=== PATIENT | female | born 1945 | race Caucasian/White ===

== ENCOUNTER 2018-06-22 11:00 | Inpatient (IN) | payer MEDICARE, OTHER ==
--- NOTE | 2018-06-16 07:18 | PREOPHP ---
DATE OF ADMISSION: 06/22/2018 SURGEON: Dr. Amelia Tyson DATE OF SURGERY: 06/22/2018 PLANNED PROCEDURE: Open abductor repair, right hip. CHIEF COMPLAINT: Right hip pain. HISTORY OF PRESENT ILLNESS: Ms. August is a 73-year-old female who states she has persistent hip dis comfort and inability to ambulate and do the activities she wishes to do. She and her surgeon electe d to undergo surgical repair next week. She denies any other current complaints besides hip pain and back pains. No recent infections, no fevers, chills or sweats. No nausea, vomiting. No change in bowel or bladder function. No chest pain, shortness of breath or dyspnea on exertion. PAST MEDICAL HISTORY: Hypertension, hyperlipidemia, hypothyroidism, osteoarthritis, gastroesophageal reflux disease. MEDICATIONS: 1. Tramadol for pain, Crestor 20 mg daily. 2. Omeprazole 40 mg daily. 3. Myrbetriq 50 mg daily. 4. Synthroid 50 mcg daily. 5. Prozac 40 mg daily. She has stopped her Celebrex prior to surgery. 6. Occasional Soma 350 mg as needed. ALLERGIES: None. SOCIAL HISTORY: No tobacco or significant alcohol use. REVIEW OF SYSTEMS: All pertinent negative. PHYSICAL EXAMINATION: GENERAL: Patient is alert, sitting on exam table. She is 5 feet 4 inches tall. VITAL SIGNS: Weight 188 pounds, blood pressure 130/75, heart rate 81, respiratory 16, afebrile. HEENT: Normocephalic, atraumatic. Pupils are equal and react to light and accommodation bilaterally . Extraocular muscles are grossly intact. Oropharynx is clear. Mucous membranes are moist. NECK: Supple, nontender, no masses or thyromegaly appreciable. No carotid bruits. CARDIOVASCULAR: Regular rate and rhythm without murmur. CHEST: Clear to auscultation bilaterally without rales, rhonchi, or wheeze. ABDOMEN: Soft, nontender, mildly obese. No masses appreciated. Positive bowel sounds. EXTREMITIES: No cyanosis, clubbing or distal edema. Hip: Deferred. She has 2+ pulses. No focal n euro deficits. She has a mildly antalgic gait. LABORATORY DATA: Chest x-ray is negative for acute disease. EKG has been done by the platemaker. Urinalysis is within normal limits. White blood cell count 4.6, hemoglobin of 12.2, hematocrit 35.9 , platelets of 274. Sed rate is 38. INR 1.1, PTT 28. Sodium 139, potassium 4.4, chloride 100, CO2 29, glucose is 94, BUN 13, creatinine 0.7, alkaline phosphatase mildly elevated at 202. Liver enzyme s otherwise normal. ASSESSMENT: 1. Right hip pain 2. Hypertension, controlled. 3. History of hypothyroidism. 4. History of hyperlipidemia. 5. Gastroesophageal reflux disease. PLAN: Ms. August is cleared for surgery with her orthopedist pending cardiac clearance. We will con timue to see for her routine primary care needs as an outpatient. Please do not hesitate to contact me should you have questions at [phone]. DR. NYA STEPHENSON DICTATING PRE-OPERARTIVE HISTORY FOR DR. AMELIA TYSON. Dictated By: AMELIA JOSÉ/NTS Conf#: [id number] DID#: [id number]
[2018-06-19 17:42] VITALS: BMI 33.4
[2018-06-22] VITALS (24 sets, daily range): BP systolic 125–157; BP diastolic 55–81; PULSE 73–92; RESP 15–18; Ht 160 cm; Wt 85.5 kg
[~2018-06-22] VITALS: Ht 160 cm; Wt 85.5 kg
--- NOTE | 2018-06-22 06:04 | HPN ---
Date/Time of Note Date/Time of Note DATE: 06/22/18 TIME: 06:04 Interval H&P Admission Note Pt. seen H&P reviewed: No system changes AMELIA MONTE MD Jun 22, 2018 06:04
--- NOTE | 2018-06-22 06:07 | OPR ---
Date/Time of Note Date/Time of Note DATE: 06/22/18 TIME: 06:04 Operative Report Procedure Date: Jun 22, 2018 Preoperative Diagnosis Right hip abductor tendon tear with chronic trochanteric bursitis Postoperative Diagnosis 1. Right hip chronic trochanteric bursitis Operation/Procedure Performed 1. Right hip open trochanteric bursectomy Surgeon see signature line Entertainment Manager Yoel Ross DO Anesthesia Type: general Estimated Blood Loss: 10 - 50 ml's Transfusion none Specimen None Grafts/Implants See op note Complications none Pt Condition Post Procedure: stable Disposition: PACU Procedure Description [employer] GENER[employer] LABORER SURGEON: Yoel Ross DO was asked to be present at my request as a result of the significant surgical complexity associated with this p rocedure including positioning of the extremities, protection of the neurovascular structures and assistance in knot-tying and suture management. In my opinion, the assistance offered by a neurosurgical nurse practitioner is insufficient and Dr. Ross should be compensated for his time PROCEDURE IN DETAIL: Following the administration of general endotracheal anesthesia supplemented with a local anesthetic, the right forearm was then sterilely prepped and 60 cc of blood were aspirated from the forearm. The bloo d was then passed off to the outside energy sales representatives from the company for preparation of the PRP solution. The patient was then placed in the left lateral decubitus position after carefully turning her. An axillary fold was placed. Sterile prep and drape was then undertaken. A lateral incision was then made over the trochanteric prominence of the right hip. The incision was carried through the subcutaneous tissues exposing the iliotibial band. The IT band was then incised and a severe amount of bursal reactive tissue was then excised. A thorough bursectomy was completed. Once the bursectomy was completed, the adductor mechanism was visualized. There was no abnormality whatsoever in the abductor mechanism. Specifically, the gluteus medius and minimus were completely intact with solid musculature. The lateral aspect of the trochanter was then debrided to stable tissue. The previously prepared PRP solution was injected in the sub-gluteal region. The wound was then closed in layers and a Prenio for the final cover. This was watertight. Estimated blood loss was procedure was 50 cc. AMELIA MONTE MD Jun 22, 2018 06:07
[~2018-06-22 11:00] MED LIST: BUPIVACAINE 0.5% (SDV) 30 ML, morphine SULFATE (PF) 8 MG, EPINEPHrine 0.3 MG, KETOROLAC... IRR SCH; CEFAZOLIN 1 GM INJ ONE; CEFAZOLIN 2 GM/50 ML (PMX) 50 ML IVPB ONE; CELE200C PO; DESFLURANE 15 MIN ONE; DEXAMETHASONE 1 MG TAB PO ONE; FLUO40CA10 PO; GABAPENTIN 300 MG CAP PO ONE; LANS30CA PO; LEVO50TA71 PO; ROCURONIUM 50 MG INJ ONE; ROSU40TA35 PO; SOD CHLORIDE 0.9% 100 ML, TRANEXAMIC ACID 3,000 MG IRR ONE; SULF500T5 PO; TRANEXAMIC ACID 1GM/100ML(PMX) 100 ML IVPB ONE; VALS1TAB74 PO; VIT. D3; [UNRECOGNIZED DRUG - OTHER]
[2018-06-22] MEDS ORDERED: MIRA50TA PO (12:24)
[2018-06-22] MEDS ORDERED: SULF500T35 PO (12:25)
[2018-06-22] MEDS ORDERED: CARI350T29 PO (12:25)
[2018-06-22] MEDS ORDERED: OMEP40CA6 PO (12:26)
[2018-06-22] MEDS ORDERED: MIDAZOLAM 1 MG/ML 2 ML INJ ONE (12:47)
[2018-06-22] MEDS ORDERED: FENTAnyl 50 MCG/ML VIAL ONE (12:47)
[2018-06-22] MEDS ORDERED: PROPOFOL 20 ML ONE (12:47)
--- NOTE | 2018-06-22 12:53 | PREAC ---
Date/Time of Note Date/Time of Note DATE: 06/22/18 TIME: 12:51 Anesthesia Eval and Record Evaluation Time Pre-Procedure Interview DATE: 06/22/18 TIME: 12:51 Age 73 Sex female NPO: 8 hrs Preoperative diagnosis Right Hip Abductor Tendonitis Planned procedure Right Open Abductor Tendon Repair Past Medical History Past Medical History: Includes Cardio: HTN, Dyslipidemia Endo: Hypothyroid Musculoskeletal: Osteoarthritis Psych: Depression Surgery & Anesthesia Issues No known issue Meds Anticoagulation: No Beta Mallory within 24 hr: No Reason Beta Mallory not given: Pt. not on B-Mallory Reported Medications Omeprazole* (Omeprazole*) 40 Mg Capsule.dr, 40 MG PO DAILY, #30 CAP 06/22/18 Carisoprodol* (Carisoprodol*) 350 Mg Tablet, 350 MG PO QHS PRN for MUSCLE SPASMS, TAB 06/22/18 Sulfasalazine EC* (Sulfazine EC*) 500 Mg Tablet.dr, 1000 MG PO BID, TAB 06/22/18 Mirabegron (Myrbetriq) 50 Mg Tab.er.24h, 50 MG PO DAILY, TAB 06/22/18 Rosuvastatin Calcium* (Crestor*) 40 Mg Tablet, 40 MG PO QHS, #30 TAB 06/19/18 Valsartan-Hydrochlorothiazide (Valsartan-HCTZ) 80-12.5 Mg Tablet, 1 TAB PO DAILY, #30 TAB 06/19/18 Levothyroxine Sodium* (Levoxyl*) 50 Mcg Tablet, 50 MCG PO BEFORE BREAKFAST, #30 TAB 06/19/18 Fluoxetine Hcl* (Prozac*) 40 Mg Capsule, 40 MG PO DAILY, CAP 06/19/18 Discontinued Reported Medications Sulfasalazine* (Sulfazine*) 500 Mg Tablet, 500 MG PO BID, TAB 06/19/18 [Vit. D3] No Conflict Check 06/19/18 [Mybetique] No Conflict Check 06/19/18 Lansoprazole* (Lansoprazole*) 30 Mg Capsule.dr, 30 MG PO DAILY, CAP 06/19/18 Celecoxib* (Celebrex*) 200 Mg Capsule, 200 MG PO DAILY, CAP 06/19/18 Current Medications Bupivacaine HCl/ Morphine Sulfate/ Epinephrine/ Ketorolac Tromethamine/ Clonidine/Sodium Chloride/ Vancomycin HCl INTRA-OP IRR ; Start 06/22/18 at 07:30 Meds reviewed: Yes Allergies Coded Allergies: adhesive tape (Verified Allergy, Severe, RASH, REDNESS, PAIN, 06/19/18) Latex, Natural Rubber (Verified Allergy, Unknown, 06/22/18) Uncoded Allergies: STERI STRIP (Allergy, Unknown, 06/22/18) Allergies Reviewed: Yes Labs/Studies Labs Reviewed: Reviewed by anesthesiologist test: N/A Studies: ECG (refer to chart) Pre-procedure Exam Airway: Adequate mouth opening, Adequate thyromental dist Mallampati: Mallampati II Teeth: Normal Lung: Normal Heart: Normal ASA Physical Status ASA physical status: 3 Emergency: None Planned Anesthetic General/MAC: ETT, LMA Planned Pain Management Parenteral pain med Pre-operative Attestations Prior to commencing anesthesia and surgery, the patient was re-evaluated, there was verification of: *The patient's identity *The results of appropriate recent lab work and preoperative vital signs *The above evaluation not changing prior to induction *Anesthetic plan, risk benefits, alternative and complications discussed with patient/family; questions answered; patient/family understands, accepts and wishes to proceed. LIZETT DOWNEY MD Jun 22, 2018 12:53
[2018-06-22] MEDS ORDERED: LABETALOL HCL 20MG INJ IV PRN (13:00)
[2018-06-22] MEDS ORDERED: OXYCODONE/ACETAMINOPHEN (5/325) TAB PO PRN (13:00)
[2018-06-22] MEDS ORDERED: ONDANSETRON 4 MG INJ IV PRN ×2 (13:00→15:30)
[2018-06-22] MEDS ORDERED: METOCLOPRAMIDE 10 MG INJ IV PRN (13:00)
[2018-06-22] MEDS ORDERED: FENTAnyl 50 MCG/ML VIAL IV PRN ×2 (13:00)
[2018-06-22] MEDS ORDERED: DIPHENHYDRAMINE 50 MG INJ IV PRN ×2 (13:00→15:30)
[2018-06-22] MEDS ORDERED: MEPERIDINE 25 MG INJ IV PRN (13:00)
[2018-06-22] MEDS ORDERED: HYDROmorphONE 1 MG/5 ML IV SYRINGE IV PRN ×3 (13:00)
[2018-06-22] MEDS ORDERED: hydrALAzine 20 MG INJ IV PRN (13:00)
[2018-06-22] MEDS ORDERED: EPHEDrine SULFATE 50 MG/5 ML SYG IV PRN (13:00)
[2018-06-22] MEDS ORDERED: THROMBIN 5000 UNIT VIAL ONE (14:06)
[2018-06-22] MEDS ORDERED: CA CHLORIDE 10% 10 ML SYRINGE ONE (14:06)
[2018-06-22] MEDS ORDERED: POLYMYXIN/BACITRACIN 1L IRRIG ONE (14:06)
[2018-06-22] MEDS ORDERED: SUGAMMADEX SODIUM 200 MG/2 ML VIAL IV ONE (15:09)
[2018-06-22] MEDS ORDERED: ONDANSETRON 4 MG INJ ONE (15:09)
[2018-06-22] MEDS ORDERED: DEXAMETHASONE 4 MG/ML 5 ML INJ ONE (15:09)
[2018-06-22] MEDS ORDERED: METOCLOPRAMIDE 10 MG INJ ONE (15:09)
[2018-06-22] MEDS ORDERED: KETOROLAC 30 MG INJ ONE (15:09)
[2018-06-22] MEDS ORDERED: HYDROmorphONE 1 MG/ML SYG IV PRN (15:30)
[2018-06-22] MEDS ORDERED: MAGNESIUM HYDROXIDE 30ML CUP PO PRN (15:30)
[2018-06-22] MEDS ORDERED: NACL 0.9% 3 ML SYG IV SCH (15:30)
[2018-06-22] MEDS ORDERED: ZOLPIDEM 5 MG TAB PO PRN (15:30)
[2018-06-22] MEDS ORDERED: CARISOPRODOL 350 MG TAB PO PRN (15:30)
[2018-06-22] MEDS ORDERED: oxyCODONE 5 MG TAB PO PRN ×3 (15:30)
[2018-06-22] MEDS ORDERED: CEFAZOLIN 1 GM/50 ML (PMX) 50 ML IVPB SCH (15:30)
--- NOTE | 2018-06-22 15:40 | PAC ---
Date/Time of Note Date/Time of Note DATE: 06/22/18 TIME: 15:40 Post-Anesthesia Notes Post-Anesthesia Note Last documented vital signs Vital Signs Date Temp Pulse Resp B/P (MAP) Pulse Ox O2 O2 Flow FiO2 Time Delivery Rate 06/22/18 98.4 87 16 135/77 96 Room Air 15:31 (96) Activity: WNL Respiratory function: WNL Cardiovascular function: WNL Mental status: Baseline Pain reasonably controlled: Yes Hydration appropriate: Yes Nausea/Vomiting absent: Yes LIZETT DOWNEY MD Jun 22, 2018 15:40
[2018-06-22] MEDS: LACTATED RINGER'S 1,000 ML IV SCH (16:45)
[2018-06-22] MEDS: DEXAMETHASONE 2 MG TAB PO SCH ×2 (18:31→23:35)
[2018-06-22] MEDS: ACETAMINOPHEN 1000MG/100ML IV 100 ML IVPB SCH (18:31)
[2018-06-22] MEDS: CEFAZOLIN 1 GM/50 ML (PMX) 50 ML IVPB SCH (20:13)
[2018-06-22] MEDS: SENNA/DOCUSATE NA (8.6MG/50MG) TAB PO SCH (20:14)
[2018-06-22] MEDS: SULFASALAZINE (EC) 500 MG TAB PO SCH (20:15)
[2018-06-22] MEDS ORDERED: GABAPENTIN 300 MG CAP PO SCH (21:00)
[2018-06-22] MEDS ORDERED: ROSUVASTATIN CALCIUM 40 MG TABLET PO SCH (21:00)
[2018-06-23 00:25] VITALS: BP 118/59; PULSE 70; RESP 20
[2018-06-23] MEDS: LACTATED RINGER'S 1,000 ML IV SCH ×2 (01:27→03:50)
[2018-06-23] MEDS: ACETAMINOPHEN 1000MG/100ML IV 100 ML IVPB SCH ×2 (01:57→09:04)
[2018-06-23] MEDS: CEFAZOLIN 1 GM/50 ML (PMX) 50 ML IVPB SCH ×2 (03:50→11:34)
[2018-06-23] MEDS: SULFASALAZINE (EC) 500 MG TAB PO SCH ×2 (04:15→09:07)
[2018-06-23 05:15] VITALS: BP 130/68; PULSE 71; RESP 20
[2018-06-23] MEDS: DEXAMETHASONE 2 MG TAB PO SCH ×2 (05:17→11:34)
[2018-06-23] MEDS ORDERED: PANTOPRAZOLE (EC) 40 MG TAB PO SCH (06:00)
--- NOTE | 2018-06-23 06:02 | PDOCDIS ---
Discharge Instructions DIAGNOSIS Discharge Diagnosis Trochanteric bursitis CONDITION [id number] Patient Condition: [id number] Good HOME CARE INSTRUCTIONS: [id number] Diet Instructions: [id number] Regular ACTIVITY: [id number] Activity Restrictions: [id number] Slowly Increase Activity Keep Limb Elevated [id number] Bathing Restrictions: [id number] Shower FOLLOW UP/APPOINTMENTS Follow-up Plan 2 weeks SCHOOL/WORK RELEASE May return to School/Work with: With Restrictions School/Work Release Comment: Crutches or walker as necessary AMELIA MONTE MD Jun 23, 2018 06:02
--- NOTE | 2018-06-23 06:02 | PN ---
Date/Time of Note Date/Time of Note DATE: 06/23/18 TIME: 06:01 Subjective Awake and alert with no pain Objective Vitals Vital Signs Date Temp Pulse Resp B/P (MAP) Pulse Ox O2 O2 Flow FiO2 Time Delivery Rate 06/23/18 97.7 71 20 130/68 96 05:15 (88) 06/22/18 Nasal 20:20 Cannula 06/22/18 2.0 19:45 Intake and Output 06/22/18 06/22/18 06/23/18 1515:00 23:00 07:00 IntakeIntake Total 1650 ml 1350 ml OutputOutput Total 310 ml 600 ml BalanceBalance 1340 ml 750 ml Wound is clean and dry. Neurologically intact. No signs of DVT. Medications Medications Current Medications Carisoprodol (Soma) 350 mg QHS PRN PO MUSCLE SPASMS; Start 06/22/18 at 15:30 Fluoxetine HCl (Prozac) 40 mg DAILY PO ; Start 06/23/18 at 09:00 Levothyroxine Sodium (Synthroid) 50 mcg BEFORE BREAKFAST PO ; Start 06/23/18 at 07:00 Rosuvastatin Calcium (Crestor) 40 mg QHS PO Last administered on 06/22/18at 22:48; Admin Dose 40 MG; Start 06/22/18 at 21:00 Sulfasalazine (Azulfidine (Entab)) 1,000 mg BID PO Last administered on 06/23/18at 04:15; Admin Dose 1,000 MG; Start 06/22/18 at 21:00 Miscellaneous Information 50 mg DAILY PO ; Start 06/23/18 at 09:00; Status UNV Pantoprazole (Protonix Tab) 40 mg DAILY@06 PO Last administered on 06/23/18at 05:17; Admin Dose 40 MG; Start 06/23/18 at 06:00 Losartan Potassium (Cozaar) 50 mg DAILY PO ; Start 06/23/18 at 09:00 Lactated Ringer's 1,000 ml @ 100 mls/hr Q10H IV Last administered on 06/23/18at 03:50; Admin Dose 100 MLS/HR; Start 06/22/18 at 15:27 Senna/Docusate Sodium (Senokot-S) 1 tab BID PO Last administered on 06/22/18at 20:14; Admin Dose 1 TAB; Start 06/22/18 at 21:00 Simethicone (Mylicon) 80 mg TID PRN PO .GAS; Start 06/22/18 at 15:30 Magnesium Hydroxide (Milk Of Mag) 30 ml BID PRN PO .CONSTIPATION; Start 06/22/18 at 15:30 Magnesium Hydroxide (Milk Of Mag) 30 ml HS PO ; Start 06/24/18 at 21:00 Dexamethasone (Decadron) 2 mg Q6 PO Last administered on 06/23/18at 05:17; Admin Dose 2 MG; Start 06/22/18 at 18:00; Stop 06/23/18 at 12:01 Gabapentin (Neurontin) 300 mg HS PO Last administered on 06/22/18at 20:14; Admin Dose 300 MG; Start 06/22/18 at 21:00 Acetaminophen 100 ml @ 400 mls/hr Q8H IVPB Last administered on 06/23/18at 01:57; Admin Dose 400 MLS/HR; Start 06/22/18 at 18:00; Stop 06/23/18 at 10:14 Oxycodone HCl (Roxicodone) 15 mg Q4H PRN PO .PAIN; Start 06/22/18 at 15:30 Oxycodone HCl (Roxicodone) 10 mg Q4H PRN PO .PAIN; Start 06/22/18 at 15:30 Oxycodone HCl (Roxicodone) 5 mg Q4H PRN PO .PAIN; Start 06/22/18 at 15:30 Hydromorphone HCl (Dilaudid) 1 mg Q4H PRN IV .BREAKTHROUGH PAIN; Start 06/22/18 at 15:30 Ondansetron HCl (Zofran Inj) 4 mg Q6H PRN IV NAUSEA/VOMITING; Start 06/22/18 at 15:30 Diphenhydramine HCl (Benadryl) 25 mg Q6H PRN IV .PRURITUS; Start 06/22/18 at 15:30 Zolpidem Tartrate (Ambien) 10 mg HS PRN PO .INSOMNIA; Start 06/22/18 at 15:30 IV Flush (NS 3 ml) 3 ml per protocol IV ; Start 06/22/18 at 15:30 Aspirin (Ecotrin) 325 mg DAILY PO ; Start 06/23/18 at 09:00 Cefazolin Sodium 50 ml @ 100 mls/hr Q8H IVPB Last administered on 06/23/18at 03:50; Admin Dose 100 MLS/HR; Start 06/22/18 at 20:00; Stop 06/23/18 at 12:29 Hydrochlorothiazide (Hydrochlorothiazide) 12.5 mg DAILY PO ; Start 06/23/18 at 09:00 VTE Prophylaxis Risk score (from [facility] [place] risk: 7 SCD applied (from [facility] [place] Yes Lines/Catheters IV Catheter Type: Saline Lock Nina in Place: No Assessment/Plan Assessment/Plan Assessment: Status post trochanteric bursectomy Plan: Begin PT this morning discharge after AMELIA MONTE MD Jun 23, 2018 06:02
--- NOTE | 2018-06-23 06:03 | DS ---
Date/Time of Note Date/Time of Note DATE: 06/23/18 TIME: 06:02 Discharge Summary Admission/Discharge Info Admit Date/Time Jun 22, 2018 at 11:23 Discharge Date/Time June 23 Discharge Diagnosis Trochanteric bursitis Patient Condition: Good Hospital Course Admitted and underwent uncomplicated procedure. Postop day 1 discharged after PT Home Meds Reported Medications Omeprazole* (Omeprazole*) 40 Mg Capsule.dr, 40 MG PO DAILY, #30 CAP 06/22/18 Carisoprodol* (Carisoprodol*) 350 Mg Tablet, 350 MG PO QHS PRN for MUSCLE SPASMS, TAB 06/22/18 Sulfasalazine EC* (Sulfazine EC*) 500 Mg Tablet.dr, 1000 MG PO BID, TAB 06/22/18 Mirabegron (Myrbetriq) 50 Mg Tab.er.24h, 50 MG PO DAILY, TAB 06/22/18 Rosuvastatin Calcium* (Crestor*) 40 Mg Tablet, 40 MG PO QHS, #30 TAB 06/19/18 Valsartan-Hydrochlorothiazide (Valsartan-HCTZ) 80-12.5 Mg Tablet, 1 TAB PO DAILY, #30 TAB 06/19/18 Levothyroxine Sodium* (Levoxyl*) 50 Mcg Tablet, 50 MCG PO BEFORE BREAKFAST, #30 TAB 06/19/18 Fluoxetine Hcl* (Prozac*) 40 Mg Capsule, 40 MG PO DAILY, CAP 06/19/18 Discontinued Reported Medications Sulfasalazine* (Sulfazine*) 500 Mg Tablet, 500 MG PO BID, TAB 06/19/18 [Vit. D3] No Conflict Check 06/19/18 [Mybetique] No Conflict Check 06/19/18 Lansoprazole* (Lansoprazole*) 30 Mg Capsule.dr, 30 MG PO DAILY, CAP 06/19/18 Celecoxib* (Celebrex*) 200 Mg Capsule, 200 MG PO DAILY, CAP 06/19/18 Follow-up Plan 2 weeks Primary Care Provider Not On Staff Doctor AMELIA MONTE MD Jun 23, 2018 06:03
[2018-06-23] MEDS ORDERED: LEVOTHYROXINE 50 MCG TAB PO SCH (07:00)
[2018-06-23 07:46] VITALS: BP 136/68; PULSE 62; RESP 18
[2018-06-23] MEDS ORDERED: LOSARTAN 50 MG TAB PO SCH (09:00)
[2018-06-23] MEDS ORDERED: FLUOXETINE 20 MG CAP PO SCH (09:00)
[2018-06-23] MEDS ORDERED: ASPIRIN (EC) 325 MG TAB PO SCH (09:00)
[2018-06-23] MEDS ORDERED: NON-FORMULARY/PATIENT OWN MED (Mirabegron (Myrbetriq) 50 MG) PO SCH (09:00)
[2018-06-23] MEDS ORDERED: HYDROCHLOROTHIAZIDE 12.5 MG CAP PO SCH (09:00)
[2018-06-23] MEDS: SENNA/DOCUSATE NA (8.6MG/50MG) TAB PO SCH (09:00)
[2018-06-24] MEDS ORDERED: MAGNESIUM HYDROXIDE 30ML CUP PO SCH (21:00)
== END 2018-06-23 12:46 | disposition home or self-care (01) | DRG 502 ==
LOC: REC 11:23 → MS1 16:55
PROVIDERS: ADMIT Orthopaedic Surgery; ATTEND Orthopaedic Surgery
PROC: 0MTL0ZZ Resection of Right Hip Bursa and Ligament, Open Approach (ICD-10-PCS; principal; 2018-06-22 13:00)
DX: M70.61 Trochanteric bursitis, right hip (principal); S76.211A Strain of adductor muscle, fascia and tendon of right thigh, initial encounter; I10 Essential (primary) hypertension; E78.5 Hyperlipidemia, unspecified; E03.9 Hypothyroidism, unspecified; K21.9 Gastro-esophageal reflux disease without esophagitis
CPT/HCPCS: 86999; 97161; J0131; J0171; J0690; J0735; J1100; J1200; J1885; J2250; J2274; J2405; J2765; J3010; J3370; J7120